=== PATIENT | male | born 1945 | race Caucasian/White ===

== ENCOUNTER → 2017-04-04 | Outpatient (CLI) | payer MEDICARE ==
--- NOTE | 2017-04-04 18:31 | PN ---
PROGRESS NOTE DATE OF SERVICE: 04/04/2017. 72-year-old gentleman has been followed in [facility] for treatment of obstructive sleep apnea-hypopnea syndrome. Patient successfully continued to use his CPAP equipment without any significant problems with the pressure or humidification or mask fitting. He continued to use equipment every night. [place] Sleepiness Scale today is 7. The patient lost weight from 198 to 171 pounds. I checked his CPAP unit. CPAP pressure is 9 cm of water. Patient using equipment 100% of nights for more than 4 hours, average 6.3 hours per night. MEDICATIONS: Breath Right, metformin, aspirin, lisinopril, vitamin C, simvastatin, insulin. . PHYSICAL EXAM: During physical exam, patient in no distress. BP 109/54, HR 64, RR 16, height 5 feet 8 inches, weight 171, BMI 26, temperature 98.3, oxygen saturation at room air 98%. HEENT: PERRLA, EOMI. Evaluation of oropharynx showed extremely low position of soft palate. NECK: Supple. No JVD. Thyroid is not palpable. LUNGS: Clear to percussion and to auscultation. Good air exchange. No wheezing or rhonchi. HEART: S1, S2 regular. No murmurs, gallops or rubs. ABDOMEN: Soft and nontender. Bowel sounds are present. No organomegaly appreciated. EXTREMITIES: No cyanosis or clubbing. REFRIGERATION MANAGER: Awake, alert and oriented x3. Cranial nerves II through VII intact. There is no fasciculation or atrophy noted. No focal deficits observed. IMPRESSION: 1. Obstructive sleep apnea-hypopnea syndrome. The patient demonstrated 100% compliance with treatment benefitting from treatment. Clinically obstructive sleep apnea-hypopnea syndrome is controlled with CPAP at 9 cm of water. 2. Hypertension. 3. Diabetes mellitus, presently patient was started on treatment with insulin. 4. Posttraumatic stress disorder. 5. History of DVT. 6. Hyperlipidemia. 7. Status post UPPP in 2001. PLAN: 1. Continue treatment with CPAP every night for the whole night. 2. Watching weight. 3. Sleep hygiene with regular time in bed for at least 8 hours. 4. No driving if feeling sleepiness. 5. Followup visit in 1 year. At that time we will consider to replace patient's CPAP unit to new unit, which will show us his apnea-hypopnea index during sleep. Thank you very much for allowing me to participate in management of your patient. Sincerely, Sam Vides MD, PhD, FAASM Diplomat of [place] [employer], Sleep Medicine Board by [place] [employer] Telesales Specialist of [facility] [place] BEENA / NEISHA: [id number] /
== END | disposition home or self-care (01) ==
LOC: SLEEP 15:59
PROVIDERS: ATTEND Internal Medicine
DX: G47.33 Obstructive sleep apnea (adult) (pediatric) (principal); I10 Essential (primary) hypertension; E11.9 Type 2 diabetes mellitus without complications; E78.5 Hyperlipidemia, unspecified; F43.12 Post-traumatic stress disorder, chronic; Z86.718 Personal history of other venous thrombosis and embolism; Z79.4 Long term (current) use of insulin

== ENCOUNTER → 2017-10-31 | Outpatient (CLI) | payer MEDICARE ==
--- NOTE | 2017-10-31 10:48 | ECHOS ---
STRESS ECHOCARDIOGRAM DATE OF SERVICE: 10/31/2017 INDICATIONS: Abnormal EKG. MEDICATIONS: Simvastatin, Jardiance, metformin. BASELINE HEART RATE: 63 BASELINE BLOOD PRESSURE: 126/38 MAXIMUM HEART RATE: 138 MAXIMUM BLOOD PRESSURE: 192/70 85% MPHR: 126 100% MPHR: 148 METS: 8 MAXIMUM STAGE REACHED: III TOTAL EXERCISE TIME: 7 minutes CLINICAL INFORMATION: Baseline EKG shows sinus rhythm with nonspecific ST-T wave changes. Patient exercised on Shakeel protocol for a total of 7 minutes achieving 8 METs, 93% of predicted maximal heart rate without chest pain. At peak exercise, there was worsening of the inferolateral ST-T wave changes noted. Baseline echo shows normal left ventricular size, wall motion and systolic function with an ejection fraction of 60%. Aortic valve shows sclerotic changes with mild restriction in leaflet mobility. Postexercise, there is normal hyperdynamic response of all segments of myocardium noted. CONCLUSIONS: 1. Limited exercise tolerance. 2. Inconclusive EKG part of the stress test due to baseline EKG abnormalities. 3. Negative stress echo. MMODL / IJN: [id number] /
== END | disposition home or self-care (01) ==
LOC: RADNMMAIN 08:18
PROVIDERS: ATTEND Internal Medicine Geriatric Medicine
DX: R94.31 Abnormal electrocardiogram [ECG] [EKG] (principal)
CPT/HCPCS: 93351

== ENCOUNTER → 2018-03-26 | Outpatient (CLI) | payer MEDICARE ==
--- NOTE | 2018-03-26 16:29 | PN ---
PROGRESS NOTE DATE OF SERVICE: 03/26/2018 73-year-old gentleman who has been followed in the Sleep Center for treatment of obstructive sleep apnea-hypopnea syndrome. The patient successfully continued to use his CPAP equipment every night without significant problems related to mask fitting, pressure and humidification. He sleeps well. [place] Sleepiness Scale today is 4. I checked the CPAP unit. CPAP pressure is 9 cm of water, usage 22/30 nights for more than 4 hours, average 4.5 hours. One time he felt burning smell from the machine. I. MEDICATIONS: Metformin, lisinopril, simvastatin, insulin, Jardiance. PHYSICAL EXAM: GENERAL Patient in no distress. VITAL SIGNS BP 133/71, HR 62, RR 16, height 68, weight 169.6, body mass index 25.6, temperature 97.8, oxygen saturation room air 96%. HEENT PERRLA, EOMI, evaluation of oropharynx showed extremely low position of soft palate. Neck 16.25 inches in circumference. NECK Supple, no JVD. Thyroid is not palpable. LUNGS Clear to percussion and to auscultation. Good air exchange. No wheezing or rhonchi. HEART S1, S2 regular. No murmurs, gallops, or rubs. ABDOMEN Soft and nontender. Bowel sounds are present. No organomegaly appreciated. EXTREMITIES No clubbing or cyanosis. MIDDLE SCHOOL BASEBALL COACH Awake, alert, and oriented X3. Cranial nerves 2 to 7 intact. There is no fasciculation or atrophy. noted. No focal deficits observed. IMPRESSION: 1. Obstructive sleep apnea-hypopnea syndrome. Patient demonstrated great compliance with treatment benefitting from treatment. 2. Hypertension. 3. Diabetes mellitus. 4. Posttraumatic stress disorder. 5. History of deep venous thrombosis. 6. Hyperlipidemia. 7. Status post uvulopalatopharyngoplasty in 2001. PLAN: 1. Prescription to replace CPAP unit is more than 5 years old. The patient felt a burning sensation from the unit. 2. Prescription for all necessary CPAP supplies including mask, tube, filters. 3. The patient will continue to use equipment every night for the whole night. 4. Sleep hygiene to them bed for at least 8 hours. 5. No driving if feeling sleepiness. Thank you very much for allowing me to participate in the management of your patient. Sincerely, Sam Vides MD, PhD, FAASM Diplomat of [place] [employer] [place] [employer] Hot Room Attendant of [facility] [place] MMDAISHA / CHAGON: [id number] /
== END ==
LOC: SLEEP 15:00
PROVIDERS: ATTEND Internal Medicine
DX: G47.33 Obstructive sleep apnea (adult) (pediatric) (principal); I10 Essential (primary) hypertension; E11.9 Type 2 diabetes mellitus without complications; F43.10 Post-traumatic stress disorder, unspecified; I82.409 Acute embolism and thrombosis of unspecified deep veins of unspecified lower extremity; E78.5 Hyperlipidemia, unspecified; Z98.890 Other specified postprocedural states; Z99.89 Dependence on other enabling machines and devices; Z79.84 Long term (current) use of oral hypoglycemic drugs; Z79.899 Other long term (current) drug therapy; Z79.4 Long term (current) use of insulin

== ENCOUNTER 2019-01-19 20:27 | Emergency (ER) | payer MEDICARE ==
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
[2019-01-19 23:29] VITALS: BP 116/58; PULSE 82; RESP 18; TEMP 98.2
--- NOTE | 2019-01-20 03:11 | ED ---
Medical Decision Making - Medical Decision Making Thumb spica splint applied to right arm. Patient neurovascularly intact before and after splint placement. Disposition Clinical Impression: Fall, Scaphoid fracture Disposition: HOME SELF-CARE Condition: Stable Instructions (If sedation given, give patient instructions): Scaphoid Fracture (ED) Is patient prescribed a controlled substance at d/c from ED?: No Referrals: Eugene Sevilla MD [Primary Care Provider] - 1-2 days Kj Castro DO [Medical Doctor] - 1-2 days Charlie Moura DO [Doctor of Osteopathic Medicine] - 1-2 days
== END 2019-01-19 23:25 | disposition home or self-care (01) ==
LOC: EC 20:27
DX: S62.001A Unspecified fracture of navicular [scaphoid] bone of right wrist, initial encounter for closed fracture (principal); S50.312A Abrasion of left elbow, initial encounter; S80.211A Abrasion, right knee, initial encounter; R07.81 Pleurodynia; E11.9 Type 2 diabetes mellitus without complications; E78.5 Hyperlipidemia, unspecified; I10 Essential (primary) hypertension; N42.9 Disorder of prostate, unspecified; G47.30 Sleep apnea, unspecified; Z99.89 Dependence on other enabling machines and devices; Z87.442 Personal history of urinary calculi; Z98.890 Other specified postprocedural states; Z79.82 Long term (current) use of aspirin; Z79.84 Long term (current) use of oral hypoglycemic drugs; Z79.899 Other long term (current) drug therapy; V13.4XXA Pedal cycle driver injured in collision with car, pick-up truck or van in traffic accident, initial encounter; Y92.410 Unspecified street and highway as the place of occurrence of the external cause; Y93.55 Activity, bike riding
CPT/HCPCS: 29125; 99283

== ENCOUNTER → 2020-11-17 | Outpatient (CLI) | payer MEDICARE ==
--- NOTE | 2020-11-17 11:04 | XR ---
EXAMINATION TYPE: XR chest 2V DATE OF EXAM: 11/17/2020 COMPARISON: Chest x-ray from 01/19/2019. No recent chest x-rays available for comparison. HISTORY: History of Covid TECHNIQUE: Frontal and lateral views of the chest are obtained. FINDINGS: There is no focal air space opacity, pleural effusion, or pneumothorax seen. The cardiac silhouette size is within normal limits. The osseous structures are intact. IMPRESSION: No acute cardiopulmonary process. Lungs are clear.
== END | disposition home or self-care (01) ==
LOC: RADXRMAIN 10:39
PROVIDERS: ATTEND Internal Medicine Geriatric Medicine
DX: Z09 Encounter for follow-up examination after completed treatment for conditions other than malignant neoplasm (principal); Z86.16 Personal history of COVID-19
CPT/HCPCS: 71046

== ENCOUNTER → 2022-12-13 | Outpatient (CLI) | payer MEDICARE ==
--- NOTE | 2022-12-13 12:11 | MR ---
EXAMINATION TYPE: MR brain wo/w con DATE OF EXAM: 12/13/2022 COMPARISON: None HISTORY: Possible TIA. Memory loss. TECHNIQUE: Multiplanar, multisequence images of the brain and brainstem is performed without and with IV contras t, utilizing 8 mL intravenous Gadavist . FINDINGS: Diffusion weighted images demonstrate no evidence of a recent infarct or other diffusion ab normality. There is mild generalized degenerative change. There are scattered small subcentimeter fo quan areas of abnormal signal throughout the white matter. No midline shift or mass effect. Midline structures demonstrate normal morphology. The craniocervica l junction appears within normal limits. Post contrast images demonstrate no abnormal enhancement. The dural venous sinuses appear patent. Mil d changes of chronic sinusitis. Orbits are symmetric. IMPRESSION: 1. Mild degenerative change with very mild nonspecific white matter changes most typical of remote mi crovascular ischemia.
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
== END ==
LOC: NEUROMAIN 07:34
PROVIDERS: ATTEND Internal Medicine Geriatric Medicine
DX: R55 Syncope and collapse (principal); R41.3 Other amnesia
CPT/HCPCS: 95816; 70553; A9585

== ENCOUNTER → 2023-05-14 | Outpatient (CLI) | payer MEDICARE ==
--- NOTE | 2023-05-15 08:44 | CA ---
Transthoracic Echo Report Name: Jourdan Mccarthy Age: 78 Gender: M : 1945 Exam Date: 05/14/2023 16:22 Exam Location: [facility] Ht (in): 68 Wt (lb): 160 Ordering Physician: Eugene Sevilla MD Attending/Referring Phys: Machinist Apprentice Wood Nneka Ibarra RDCS Procedure CPT: Indications: I35.0 Nonrheumatic aortic (valve) stenosis Cardiac Hx: Technical Quality: Good Contrast 1: Total Dose (mL): Contrast 2: Total Dose (mL): MEASUREMENTS (Male / Female) Normal Values 2D ECHO LV Diastolic Diameter PLAX 5.1 cm 4.2 - 5.9 / 3.9 - 5.3 cm LV Systolic Diameter PLAX 3.2 cm IVS Diastolic Thickness 1.2 cm 0.6 - 1.0 / 0.6 - 0.9 cm LVPW Diastolic Thickness 1.1 cm 0.6 - 1.0 / 0.6 - 0.9 cm LV Relative Wall Thickness 0.5 RV Internal Dim ED PLAX 3.8 cm LVOT Diameter 2.3 cm LA Systolic Diameter LX 4.4 cm 3.0 - 4.0 / 2.7 - 3.8 cm LV Diastolic Volume MOD 4C 114.0 cm??? LV Systolic Volume MOD 4C 60.0 cm??? LV Ejection Fraction MOD 4C 47.4 % LV Cardiac Index MOD 4C 1472.3 cm???/min???m??? LV Diastolic Length 4C 8.3 cm LV Systolic Length 4C 6.6 cm LV Diastolic Volume MOD 2C 108.0 cm??? LV Systolic Volume MOD 2C 61.5 cm??? LV Ejection Fraction MOD 2C 43.0 % LV Cardiac Index MOD 2C 1264.0 cm???/min???m??? LV Diastolic Length 2C 8.6 cm LV Systolic Length 2C 7.5 cm LA Volume 77.4 cm??? 18 - 58 / 22 - 52 cm??? LA Volume Index 41.3 cm???/m??? 16 - 28 cm???/m??? M-MODE Aortic Root Diameter MM 3.3 cm MV E Point Septal Separation 0.7 cm AV Cusp Separation MM 2.1 cm DOPPLER AV Peak Velocity 337.4 cm/s AV Peak Gradient 45.5 mmHg AV Mean Velocity 227.5 cm/s AV Mean Gradient 23.5 mmHg AV Velocity Time Integral 85.0 cm LVOT Peak Velocity 93.1 cm/s LVOT Peak Gradient 3.5 mmHg AV Area Cont Eq pk 1.1 cm??? MV Area PHT 2.3 cm??? Mitral E Point Velocity 80.4 cm/s Mitral A Point Velocity 73.4 cm/s Mitral E to A Ratio 1.1 MV Deceleration Time 326.0 ms MV E' Velocity 4.9 cm/s Mitral E to MV E' Ratio 16.3 TR Peak Velocity 254.8 cm/s TR Peak Gradient 26.0 mmHg Right Ventricular Systolic Press 30.6 mmHg FINDINGS Left Ventricle Left ventricular ejection fraction is estimated at 55-60 %. Left ventricular cavity size normal. Mildly increased left ventricular wall thickness. Normal left ventricular wall motion. Grade 2 diastolic dysfunction. Right Ventricle Mild right ventricular dilatation. Right ventricular systolic pressure within normal limits. Right Atrium Normal right atrial size. Left Atrium Mildly increased left atrial diameter. Moderately increased left atrial volume. Mildly increased left atrial area. Mitral Valve Mitral valve thickened. Mitral annular calcification. Mild mitral regurgitation. Aortic Valve Trileaflet aortic valve. Modrate aortic valve sclerosis. Moderate aortic stenosis with a peak gradient of 46 mmHg and a mean gradient of 23 mmHg. Tricuspid Valve Structurally normal tricuspid valve. Mild tricuspid regurgitation. Pulmonic Valve Structurally normal pulmonic valve. Trace pulmonic regurgitation. Pericardium No pericardial effusion. Aorta Normal size aortic root and proximal ascending aorta. CONCLUSIONS 1. Normal left ventricular size and systolic function 2. Mild mitral and tricuspid regurgitation with no evidence of pulmonary hypertension 3. Moderate aortic stenosis with a mean gradient of 23 mmHg Previewed by: Dr. Shayna Almaraz MD (Electronically Signed) Final Date: 15 May 2023 08:43
== END | disposition home or self-care (01) ==
LOC: RADECHMAIN 16:13
PROVIDERS: ATTEND Internal Medicine Geriatric Medicine
DX: I35.0 Nonrheumatic aortic (valve) stenosis (principal)
CPT/HCPCS: 93306

== ENCOUNTER → 2024-01-17 | Outpatient (CLI) | payer MEDICARE ==
--- NOTE | 2024-01-17 15:13 | CA ---
Transthoracic Echo Report Name: Jourdan Mccarthy Age: 78 Gender: M : 1945 Exam Date: 01/17/2024 09:37 Exam Location: [facility] Ht (in): 68 Wt (lb): 161 Ordering Physician: Eugene Sevilla MD Attending/Referring Phys: Eugene Sevilla MD Terrazzo Layer Helper Rosetta Das, [facility] Procedure CPT: Indications: I20.9 angina pectoris Cardiac Hx: Technical Quality: Fair Contrast 1: Total Dose (mL): Contrast 2: Total Dose (mL): MEASUREMENTS (Male / Female) Normal Values 2D ECHO LV Diastolic Diameter PLAX 4.8 cm 4.2 - 5.9 / 3.9 - 5.3 cm LV Systolic Diameter PLAX 3.6 cm IVS Diastolic Thickness 1.6 cm 0.6 - 1.0 / 0.6 - 0.9 cm LVPW Diastolic Thickness 1.6 cm 0.6 - 1.0 / 0.6 - 0.9 cm LV Relative Wall Thickness 0.7 RV Internal Dim ED PLAX 2.8 cm LVOT Diameter 2.0 cm LA Systolic Diameter LX 4.8 cm 3.0 - 4.0 / 2.7 - 3.8 cm LV Diastolic Volume MOD BP 61.5 cm??? 67 - 155 / 56 - 104 cm??? LV Systolic Volume MOD BP 21.6 cm??? 22 - 58 / 19 - 49 cm??? LV Ejection Fraction MOD BP 64.8 % >= 55 % LV Cardiac Index MOD BP 1124.9 cm???/min???m??? LV Diastolic Volume MOD 4C 55.0 cm??? LV Systolic Volume MOD 4C 14.4 cm??? LV Ejection Fraction MOD 4C 73.9 % LV Cardiac Index MOD 4C 1145.8 cm???/min???m??? LV Diastolic Length 4C 7.6 cm LV Systolic Length 4C 5.1 cm LV Diastolic Volume MOD 2C 67.5 cm??? LV Systolic Volume MOD 2C 27.1 cm??? LV Ejection Fraction MOD 2C 59.9 % LV Cardiac Index MOD 2C 1139.3 cm???/min???m??? LV Diastolic Length 2C 7.4 cm LV Systolic Length 2C 6.2 cm Aorta at Sinuses Diameter 3.5 cm M-MODE Aortic Root Diameter MM 2.5 cm LA Systolic Diameter MM 3.3 cm LA Ao Ratio MM 1.3 DOPPLER AV Peak Velocity 448.3 cm/s AV Peak Gradient 80.4 mmHg AV Mean Velocity 364.6 cm/s AV Mean Gradient 56.3 mmHg AV Velocity Time Integral 124.5 cm LVOT Peak Velocity 81.3 cm/s LVOT Peak Gradient 2.6 mmHg LVOT Velocity Time Integral 22.2 cm LVOT Stroke Volume 72.2 cm??? LVOT Stroke Volume Index 38.8 ml/m??? LVOT Cardiac Index 2036.9 cm???/min???m??? AV Area Cont Eq vti 0.6 cm??? AV Area Cont Eq pk 0.6 cm??? Mitral E Point Velocity 81.0 cm/s Mitral A Point Velocity 76.1 cm/s Mitral E to A Ratio 1.1 MV Deceleration Time 285.6 ms TR Peak Velocity 273.0 cm/s TR Peak Gradient 29.8 mmHg Right Ventricular Systolic Press 34.9 mmHg FINDINGS Left Ventricle Left ventricular ejection fraction is estimated at 60-65 %. Moderately increased septal wall thickness. Left ventricular cavity size normal. Normal left ventricular systolic function with no obvious regional wall motion abnormalities. Right Ventricle Normal right ventricular size and function. Mild pulmonary hypertension. Right Atrium Mild right atrial dilatation. Left Atrium Moderately increased left atrial diameter. Mitral Valve Structurally normal mitral valve. Szld-kh-[id number] mitral regurgitation. No mitral stenosis. Aortic Valve Trileaflet aortic valve. Severe aortic stenosis with a peak velocity of 4.48 m/s, peak gradient 80 mmHg, mean gradient 56 mmHg, and estimated aortic valve area of 0.6 cm???. Trace aortic regurgitation. Tricuspid Valve Structurally normal tricuspid valve. Mild tricuspid regurgitation. Pulmonic Valve Structurally normal pulmonic valve. Trace pulmonic regurgitation. Pericardium No pericardial or pleural effusion. Aorta Upper limits of normal at the level of the sinuses of valsalva (root), 3.5cm. CONCLUSIONS Left ventricular ejection fraction 60-65% Moderately increased left ventricular wall thickness Severe aortic stenosis with peak gradient 4.4 m/s Mild tricuspid regurgitation Previewed by: Dr. Uriel Martínez DO (Electronically Signed) Final Date: 17 January 2024 15:12
== END | disposition home or self-care (01) ==
LOC: RADNMMAIN 09:12
PROVIDERS: ATTEND Internal Medicine Geriatric Medicine
DX: I20.9 Angina pectoris, unspecified (principal); I08.2 Rheumatic disorders of both aortic and tricuspid valves
CPT/HCPCS: 93306

== ENCOUNTER → 2024-03-25 | Day surgery (SDC) | payer MEDICARE ==
[2024-03-20 09:53] VITALS: BMI 26.2
[~2024-03-25] MED LIST: ALPRAZolam 0.25 MG TAB PO PRN; ALPRAZolam 0.5 MG TAB PO PRN; NITROGLYCERIN SL TABS 0.4 MG TAB SUBLINGUAL PRN
[2024-03-25 07:37] LABS: Glucose,Whole Blood 187 mg/dL (70-110)
[2024-03-25 07:40] VITALS: TEMP 97.6
[2024-03-25] MEDS: ASPIRIN 325 MG TAB PO STA (07:44)
[2024-03-25] MEDS: SODIUM CHLORIDE 0.9% 1,000 ML in EMPTY BAG 1 BAG IV SCH (07:44)
[2024-03-25] MEDS: IV FLUID CONTINUATION 1,000 ML IV ONE (07:47)
[2024-03-25 08:06] LABS: Basophils % (A) 1 %; Eosinophils # (A) 0.1 k/uL (0-0.7); Eosinophils % (A) 2 %; HCT 39.3 % (39.0-53.0); Lymphocytes # (A) 1.6 k/uL (1.0-4.8); Lymphocytes % (A) 36 %; MCH 30.9 pg (25.0-35.0); MCHC 33.1 g/dL (31.0-37.0); MCV 93.5 fL (80.0-100.0); Mean Platelet Volume 9.4; Monocytes # (A) 0.4 k/uL (0-1.0); Monocytes % (A) 8 %; Neutrophils # (A) 2.2 k/uL (1.3-7.7); Neutrophils % (A) 51 %; Platelet Count 170 k/uL (150-450); RDW 14.4 % (11.5-15.5); WBC 4.4 k/uL (3.8-10.6)
[2024-03-25] MEDS: BENZOCAINE SPRAY 1 EACH MM ONE (08:20)
[2024-03-25] MEDS: fentaNYL (PF) 50 MCG/ML 2 ML AMP IVP ONE (08:20)
[2024-03-25] MEDS: MIDAZOLAM 2 MG/2 ML VIAL IVP ONE (08:20)
[2024-03-25 08:22] LABS: ALT 14 U/L (4-49); AST 19 U/L (17-59); African American GFR (CKD) >90 (>60 ml/min/1.73 sqM); Albumin 4.2 g/dL (3.5-5.0); Alkaline Phosphatase 74 U/L (38-126); Anion Gap 7 mmol/L; Blood Urea Nitrogen 21 mg/dL (9-20); Calcium 9.3 mg/dL (8.4-10.2); Carbon Dioxide 29 mmol/L (22-30); Chloride 102 mmol/L (98-107); Glucose 172 mg/dL (74-99); Non-African American GFR(CKD) 82 (>60 ml/min/1.73 sqM); Sodium 138 mmol/L (137-145); Total Bilirubin 0.9 mg/dL (0.2-1.3); Total Protein 6.4 g/dL (6.3-8.2); Uric Acid 4.9 mg/dL (3.5-8.5)
[2024-03-25] MEDS: SODIUM CHLORIDE 0.9% 1,000 ML IV ONE (08:37)
[2024-03-25] MEDS: LIDOCAINE 1% INJ 10MG/ML (20 ML MDV) SQ ONE (08:44)
[2024-03-25] MEDS: VERAPAMIL SYRINGE (5 MG/10 ML) INTRAARTER ONE (08:45)
[2024-03-25] MEDS: HEPARIN SODIUM 1,000 UN/ML (10ML VL) IVP ONE (08:49)
[2024-03-25] MEDS: IOPAMIDOL-370 100ML BTL INJ ONE (08:58)
[2024-03-25] MEDS: HEPARIN SODIUM,PORCINE 10,000 UNIT in SODIUM CHLORIDE 0.9% 1,000 ML IRRIGATION PRN (08:59)
[2024-03-25] MEDS: HEPARIN SODIUM,PORCINE (1 ML) 2,500 UNIT in SODIUM CHLORIDE 0.9% 250 ML IRRIGATION PRN (08:59)
--- NOTE | 2024-03-25 09:56 | P.TEE ---
Description of Procedure(s): Procedure performed: Transesophageal Echocardiogram with color flow doppler, pulsed wave doppler and continuous wave doppler, moderate conscious sedation Moderate conscious sedation: Moderate conscious sedation was supplied with direct supervision of myself using Versed and Fentanyl. Complications: none Indications: aortic stenosis PROCEDURE: After the risks, benefits and alternatives of the above mentioned procedure was explained in detail with the patient, informed consent was obtained. Patient was brought to the lab in a fasting state. Patient was given IV Versed and Fentanyl for sedation. The throat was sprayed with Hurricane to anesthetize the throat. A lubricated Omni probe was then introduced into the esophagus and stomach and multiple views were obtained. 2D echo with color flow doppler, pulsed wave doppler and continuous wave doppler was utilized. Agitated saline bubbles were injected to assess for any intra-atrial shunt. The probe was then removed. Patient tolerated the procedure well. Patient was transferred to the post procedure area in stable and satisfactory condition. FINDINGS: 1. The aortic valve is tricuspid with severe aortic stenosis with aortic valve area 0.6 cm by planimetry 2. The mitral valve appears be normal with mild regurgitation. 3. Tricuspid valve appears to be normal. 4. The interatrial septum is intact. No evidence of PFO. 5. Left atrial appendage is free of clot. 6. Left ventricular ejection fraction 55%
--- NOTE | 2024-03-25 10:00 | P.CARDCATH ---
Description of Procedure: PROCEDURES PERFORMED: Bilateral coronary angiography, ultrasound guided arterial access, iFR RCA INDICATION: Aortic stenosis CONSENT:I have discussed the risks, benefits and alternative therapies for the above-mentioned procedure and for both sedation/analgesia as well as necessary blood product administration, if indicated, as they pertain to this patient. The patient has indicated understanding and acceptance of the risks and procedures discussed. PROCEDURE: After the risks, benefits and alternatives of the above mentioned procedure explained in detail with the patient, informed consent was obtained. Patient was taken to the catheterization lab and prepped and draped in usual fashion. Ultrasound guidance was used to assess for arterial access. 1% lidocaine was used to anesthetize the right radial artery. A 6-Maltese sheath was placed in the right radial artery using modified Seldinger technique and ultrasound guidance. Left coronary angiography was performed with a 5-Maltese JL 3.5 catheter and right coronary angiography was performed with a 5-Maltese FR5 catheter in various views. the decision was made to perform functional assessment of the RCA. However was given. A 5-Maltese FR5 catheter was engaged in the RCA. A 0.014 pressure wire was advanced in the RCA ostium and normalized. It was then advanced 1 cm distal to the lesion and RFR (iFR) was performed and was normal at 0.97. The right radial sheath was removed and a TR band was placed with hemostasis achieved. The patient tolerated the procedure well. Patient was transported back to the post catheterization holding area in stable condition. Conscious Sedation: Patient was monitored under the direct supervision of myself for conscious sedation using Versed and fentanyl for a total duration of 14 minutes HEMODYNAMICS: Aorta: 155/72 SELECTIVE CORONARY ARTERIOGRAPHY: LEFT MAIN: The left main is a large caliber vessel which trifurcates into the LAD, ramus and circumflex. There is no significant stenosis. LEFT ANTERIOR DESCENDING CORONARY ARTERY: LAD is a large caliber vessel which wraps around to the apex. There is 20-30% proximal LAD in 20-30% mid LAD stenosis and otherwise mild luminal irregularities. RAMUS INTERMEDIUS: the ramus is a moderate caliber vessel with mild luminal irregularities. LEFT CIRCUMFLEX CORONARY ARTERY: Left circumflex is a moderate caliber vessel with mild luminal irregularities RIGHT CORONARY ARTERY: The right coronary artery is a large caliber vessel which gives off a PDA and PLV branch and is the dominant vessel. There is proximal RCA calcified 50-60% plaque and otherwise mild luminal irregularities. FINAL IMPRESSION: 1. CAD as described above including 20-30% LAD, 50-60% proximal RCA stenosis 2. Normal iFR of RCA PLAN: 1. Aggressive risk factor modification per most recent ACC/AHA guidelines. 2. Evaluate for AVR
[2024-03-25 15:26] LABS: Chol/HDL Ratio 4.01 Ratio; LDL Cholesterol,Calculated 147.1 mg/dL (0.0-131.0)
[2024-03-25 15:36] VITALS: RESP 14
[2024-03-25 15:39] VITALS: BP 128/55; PULSE 50
== END ==
LOC: CATHCVL 06:38
PROVIDERS: ATTEND Internal Medicine
DX: I08.3 Combined rheumatic disorders of mitral, aortic and tricuspid valves (principal); I25.10 Atherosclerotic heart disease of native coronary artery without angina pectoris; E11.9 Type 2 diabetes mellitus without complications; I10 Essential (primary) hypertension; E78.5 Hyperlipidemia, unspecified; Z79.899 Other long term (current) drug therapy
CPT/HCPCS: 80053; 80061; 83036; 84443; 84550; 85025; 93312; 93320; 93325; 93454; 93799

== ENCOUNTER → 2024-04-09 | Outpatient (CLI) | payer MEDICARE ==
[2024-04-09 09:55] LABS: HGB 13.3 gm/dL (13.0-17.5); MCH 30.7 pg (25.0-35.0); MCHC 32.4 g/dL (31.0-37.0); MCV 94.8 fL (80.0-100.0); RBC 4.33 m/uL (4.30-5.90); RDW 14.6 % (11.5-15.5); WBC 5.6 k/uL (3.8-10.6)
[2024-04-09 09:56] LABS: Basophils % (A) 0 %; Eosinophils # (A) 0.1 k/uL (0-0.7); Eosinophils % (A) 2 %; Lymphocytes # (A) 1.3 k/uL (1.0-4.8); Lymphocytes % (A) 24 %; Mean Platelet Volume 9.3; Monocytes # (A) 0.4 k/uL (0-1.0); Monocytes % (A) 7 %; Neutrophils # (A) 3.7 k/uL (1.3-7.7); Neutrophils % (A) 66 %; Platelet Count 171 k/uL (150-450)
[2024-04-09 10:04] LABS: Partial Thromboplastin Time 23.2 sec (22.0-30.0); Prothrombin Time 11.1 sec (10.0-12.5)
[2024-04-09 10:16] LABS: ALT 17 U/L (4-49); AST 24 U/L (17-59); African American GFR (CKD) >90 (>60 ml/min/1.73 sqM); Albumin 4.5 g/dL (3.5-5.0); Albumin/Globulin Ratio 1.8; Alkaline Phosphatase 62 U/L (38-126); Anion Gap 7 mmol/L; Bilirubin,Unconjugated 0.8 mg/dL (0.0-1.1); Blood Urea Nitrogen 25 mg/dL (9-20); Calcium 9.6 mg/dL (8.4-10.2); Carbon Dioxide 28 mmol/L (22-30); Chloride 103 mmol/L (98-107); Globulin 2.5 g/dL; Glucose 170 mg/dL (74-99); Magnesium 1.9 mg/dL (1.6-2.3); Non-African American GFR(CKD) 88 (>60 ml/min/1.73 sqM); Potassium 4.3 mmol/L (3.5-5.1); Sodium 138 mmol/L (137-145)
[2024-04-09 10:23] LABS: NT-Pro-B-Type Natriuretic Pept 997 pg/mL
[2024-04-09 11:00] LABS: Appearance,Urine Clear (Clear); Bilirubin,Urine Negative (Negative); Blood,Urine Negative (Negative); Color,Urine Light Yellow; Glucose,Urine (UA) Negative (Negative); Ketones,Urine Negative (Negative); Leukocyte Esterase,Urine Negative (Negative); Nitrite,Urine Negative (Negative); Protein,Urine Negative (Negative); Specific Gravity,Urine 1.021 (1.001-1.035); Urobilinogen,Urine <2.0 mg/dL (<2.0)
--- NOTE | 2024-04-09 11:55 | CT ---
EXAMINATION TYPE: CT TAVR Planning DATE OF EXAM: 04/09/2024 HISTORY: TAVR planning CT DLP: 1951.30 mGycm Automated Exposure Control for Dose Reduction was Utilized. CONTRAST: CT scan of the chest, abdomen and pelvis is performed with IV Contrast, patient injected with 125 mL of Isovue 370. COMPARISON: None TECHNIQUE: Helical imaging obtained through the chest, abdomen and pelvis during arterial phase anila ambrose administration of radiographic contrast intravenously. FINDINGS: See report from [facility] regarding preprocedural planning CHEST: There are no nodules greater than 5 6 mm there are diffuse scattered micronodules. There is no airspa ce consolidation or interstitial density. There is no pleural effusion, pleural thickening or pneumot horax. Heart is not enlarged. The aortic root and ascending thoracic aorta are not dilated. There is moderat e to marked calcification in the aortic root likely involving the aortic valve and origins of the cor onary vessels. There is no mediastinal, hilar or axillary adenopathy. The osseous structures are intact. CT abdomen and pelvis: The gallbladder is normal. There is no focal mass or organomegaly involving the solid visceral organs there is no solid renal ma ss or hydronephrosis. There is moderate calcification abdominal aorta but no aneurysm. There is no retroperitoneal adenopat hy. The bowel loops are normal in caliber and there is no dilatation or obstruction. There is marked dive rticulosis of the sigmoid colon without CT evidence of diverticulitis. There is no free intraperitoneal air or fluid. There is no pelvic mass or adenopathy. The osseous structures are intact. CT NECK: There is no thyroid mass or nodule. The larynx is intact. The tongue base is normal without mass. There is no pharyngeal or parapharyngeal soft tissue mass. There is no neck adenopathy. There is moderate calcification of the carotid bifurcations resulting in mild stenosis. IMPRESSION: 1. No thoracic aortic aneurysm. Calcification of the aortic root as described above. 2. No acute cardiopulmonary disease. 3. No acute changes within the abdomen or pelvis. 4. No acute changes within the soft tissues of the neck. [facility], , 04/09/2024 11:52 AM
--- NOTE | 2024-04-09 12:33 | US ---
EXAMINATION TYPE: US carotid duplex BILAT DATE OF EXAM: 04/09/2024 COMPARISON: 08/28/2022 CLINICAL INDICATION: Male, 79 years old with history of R55; Pre-OP pt TECHNIQUE: Grayscale, color Doppler and spectral Doppler evaluation of the bilateral carotid systems and vertebral arteries.Indirect Doppler criteria was utilized. FINDINGS: EXAM MEASUREMENTS: RIGHT: Peak Systolic Velocity (PSV) cm/sec ----- Right CCA: 61.6 ----- Right ICA: 131.8 ----- Right ECA: 94.1 ICA/CCA ratio: 2.1 RIGHT: End Diastole cm/sec ----- Right CCA: 11.0 ----- Right ICA: 33.3 ----- Right ECA: 0.0 LEFT: Peak Systolic Velocity (PSV) cm/sec ----- Left CCA: 84.4 ----- Left ICA: 122.1 ----- Left ECA: 82.3 ICA/CCA ratio: 1.4 LEFT: End Diastole cm/sec ----- Left CCA: 11.0 ----- Left ICA: 22.0 ----- Left ECA: 0.0 VERTEBRALS (direction of flow): Right Vertebral: Antegrade Left Vertebral: Antegrade Rhythm: Arrhythmia ENGINEER TECHNICAL STAFF NOTES: Heterogeneous plaque bilaterally with elevated velocities and ratios, more on righ t side. IMPRESSION: 1. Atherosclerotic changes with findings suggestive of a 50-69% stenosis proximal right ICA. 2. Cardiac dysrhythmia. Criteria for Assigning % of Stenosis / Diameter reduction (Estimation based on the indirect measurements of the internal carotid artery velocities (ICA PSV). 1. Normal (no stenosis)=ICA PSV < 125 cm/s: ratio < 2.0: ICA EDV<40 cm/s. 2. Less than 50% stenosis=ICA PSV < 125 cm/s: ratio < 2.0: ICA EDV<40 cm/s. 3. 50 to 69% stenosis=ICA PSV of 125 to 230 cm/s: ration 2.0 ? 4.0: ICA EDV 40-100 cm/s. 4. Greater than 70% stenosis to near occlusion= ICA PSV > 230 cm/s: ratio > 4.0: ICA EDV > 100 cm/s. 5. Near occlusion= ICA PSV velocities may be low or undetectable: variable ratio and ICA EDV. 6. Total occlusion=unable to detect flow. [facility], , 04/09/2024 12:30 PM
[2024-04-09 16:00] LABS: Chol/HDL Ratio 2.68 Ratio; LDL Cholesterol,Calculated 76.8 mg/dL (0.0-131.0)
== END | disposition home or self-care (01) ==
LOC: LABWHC1 09:02
PROVIDERS: ATTEND Thoracic Surgery (Cardiothoracic Vascular Surgery)
DX: Z01.818 Encounter for other preprocedural examination (principal); I35.0 Nonrheumatic aortic (valve) stenosis; R55 Syncope and collapse; E87.8 Other disorders of electrolyte and fluid balance, not elsewhere classified; R58 Hemorrhage, not elsewhere classified; E07.9 Disorder of thyroid, unspecified; R35.0 Frequency of micturition; E11.9 Type 2 diabetes mellitus without complications; N28.9 Disorder of kidney and ureter, unspecified; E78.5 Hyperlipidemia, unspecified; H59.0 Disorders of the eye following cataract surgery; Z79.01 Long term (current) use of anticoagulants; Z79.899 Other long term (current) drug therapy
CPT/HCPCS: 94150; 83880; 80061; 80053; 84443; 82248; 83735; 85025; 85610; 85730; 81003; 83036; 93880; 71275; 36415 ×2; 74174; 93005; Q9967

== ENCOUNTER → 2024-04-13 | Outpatient (CLI) | payer MEDICARE ==
[2024-04-13 17:32] LABS: Partial Thromboplastin Time 24.9 sec (22.0-30.0); Prothrombin Time 11.2 sec (10.0-12.5)
[2024-04-14 02:28] LABS: HCT 40.8 % (39.6-50.0); HGB 13.3 g/dL (13.0-17.0); MCH 31.2 pg (27.0-32.0); MCHC 32.6 g/dL (32.0-37.0); MCV 95.8 FL (80.0-97.0); Mean Platelet Volume 12.9 FL (9.5-12.2); NRBC Per 100 WBC 0 X 10*3/uL (0.00-0.01); Platelet Count 154 X 10*3/uL (140-440); RBC 4.26 X 10*6/uL (4.40-5.60); RDW 14.9 % (11.5-14.5)
[2024-04-14 03:11] LABS: Magnesium 1.7 mg/dL (1.5-2.4)
[2024-04-14 03:29] LABS: Blood Urea Nitrogen 22.9 mg/dL (9.0-27.0); Carbon Dioxide 25.2 mmol/L (21.6-31.8); Chloride 103 mmol/L (96-109); Glucose 157 mg/dL (70-110); Potassium 4.7 mmol/L (3.5-5.5); Sodium 140 mmol/L (135-145)
== END | disposition home or self-care (01) ==
LOC: LABPAT 16:20
PROVIDERS: ATTEND Surgery
DX: Z01.818 Encounter for other preprocedural examination
CPT/HCPCS: 80051; 82565; 82947; 83735; 84520; 85027; 85610; 85730; 86850; 86900; 86901

== ENCOUNTER 2024-04-15 05:32 | Inpatient (IN) | payer MEDICARE ==
[2024-04-14 13:20] VITALS: BMI 26.6
[2024-04-15] MEDS ORDERED: ELECTROLYTE-A SOLUTION 1,000 ML with POTASSIUM CHLORIDE 100 MEQ, MAGNESIUM SULFATE 16 M... IV PRN (06:00)
[2024-04-15] MEDS ORDERED: TRANEXAMIC ACID 2,000 MG in SODIUM CHLORIDE 0.9% 80 ML IV PRN (06:00)
[2024-04-15] MEDS ORDERED: PROTAMINE SULFATE 250 MG in EMPTY BAG 1 BAG IV PRN (06:00)
[2024-04-15] MEDS ORDERED: CLEVIDIPINE BUTYRATE 25 MG in EMPTY BAG 1 BAG IV PRN (06:00)
[2024-04-15] MEDS ORDERED: NITROGLYCERIN-D5W PMX 25 MG/250 ML BTL IV PRN (06:00)
[2024-04-15] MEDS ORDERED: SODIUM CHLORIDE 0.9% 500 ML 500 ML INTRAARTER PRN (06:00)
[2024-04-15] MEDS ORDERED: METOPROLOL TARTRATE 25 MG TAB PO ONE (06:00)
[2024-04-15] MEDS ORDERED: INSULIN REGULAR 100 UNIT in SODIUM CHLORIDE 0.9% 100 ML IV PRN (06:00)
[2024-04-15 06:22] LABS: Glucose,Whole Blood 135 mg/dL (70-110)
[2024-04-15] MEDS: IV FLUID CONTINUATION 1,000 ML IV ONE ×2 (06:22→09:28)
[2024-04-15] MEDS: CLOPIDOGREL 75 MG TAB PO ONE (06:23)
[2024-04-15] MEDS: ATORVASTATIN 10 MG TAB PO ONE (06:23)
[2024-04-15] MEDS: METOPROLOL TARTRATE 12.5 MG TAB PO ONE ×2 (06:26→20:25)
[2024-04-15] MEDS ORDERED: ROCURONIUM 10 MG/ML (5 ML VIAL) IV ONE (07:47)
[2024-04-15] MEDS ORDERED: MIDAZOLAM 2 MG/2 ML VIAL ONE (07:47)
[2024-04-15] MEDS ORDERED: HEPARIN SODIUM,PORCINE 10,000 UNIT/ML 1 ML VIAL ONE (07:47)
[2024-04-15] MEDS ORDERED: GLYCOPYRROLATE 0.2 MG/ML 2 ML VIAL ONE (07:47)
[2024-04-15] MEDS: IOPAMIDOL-370 200ML BTL INJ ONE (09:04)
--- NOTE | 2024-04-15 09:06 | P.ANPRN ---
Procedure Note - Anesthesia - ERLINDA Intraop Pre Bypass ERLINDA Intraop - Anesthesia Indication: TAVR Date of Procedure: 04/15/24 Pre-operative Diagnosis: Aortic Stenosis Post-operative Diagnosis: same, s/p tavr Surgeon: Aakash Paulson Left Ventricle: no rwma Ejection Fraction: Normal Regional Wall Motion Abnormalities: None Left Ventricle Hypertrophy: No R. Ventricle Function: Normal Aortic Valve: calcified. peak 62, mean 43. Calculated DANIELE 0.4cm2. Thickened leaflets Anatomy: Trileaflet Aortic Stenosis: Severe Aortic Regurgitation: None Mitral Stenosis: None Mitral Regurgitation: Mild Tricuspid Stenosis: None Tricuspid Regurgitation: Trace Pulmonic Stenosis: None Pulmonic Regurgitation: None R. Atrial Dilation: No R. Atrial PFO: No L. Atrial Dilation: No Aortic Dissection: No Aortic Calcification: None Plural Effusion: None
--- NOTE | 2024-04-15 09:08 | P.ANPRN ---
Procedure Note - Anesthesia - ERLINDA Intraop Post Bypass ERLINDA Intraop Post Bypass Procedure Performed: TAVR Left Ventricle: wnl Ejection Fraction: Normal Regional Wall Motion Abnormalities: None R. Ventricle Function: Normal Aortic Valve: new prosthetic valve in place. Residual mean 3.5. Initially perivalvular leak noted significant at the 2 o'clock position. After balloon dilation, no longer present. Mitral Valve: Unchanged Tricuspid: Unchanged Pulmonic: Unchanged Aortic Dissection: No
--- NOTE | 2024-04-15 09:11 | P.OP ---
Description of Procedure: Transcatheter Aoritc Valve Replacement Operative report PROCEDURE PERFORMED: 1. Percutaneous Aortic Valve Implantation using a 34 mm Evolut-FX +. 2. Transesophageal echocardiography (performed by anesthesia) 3. Ultrasound guided access and repair of right femoral artery access site by Perclose closure device. 4. Placement of temporary pacemaker wire. 5. Aortic root angiography 6. Post TAVR ballooon aortic valvuloplasty with a 26mm True balloon INDICATIONS: 1. 79 year-old with a history of severe symptomatic aortic valve stenosis. PERFORMING PHYSICIANS: 1. Uriel Martínez, Interventional Cardiology 2. Aakash Paulson MD, Cardiothoracic Surgeon. SEDATION: General anesthesia provided by anesthesia, see separate note APPROACH: Right femoral artery via percutaneous approach PROCEDURE DESCRIPTION: The patient was discussed at valve clinic with multidisciplinary approach with cardiothoracic surgeon as well as software engineering specialist and thought better treated with TAVR. Risks, benefits, and alternatives of the procedure had been explained to the patient who understood the risks and agreed to proceed. After consents were obtained, patient was brought to the transcatheter aortic valve implantation room in the cardiac optical laboratory manager and general anesthesia was provided by the anesthesiologist (see separate report). Once full body sterile prep was performed, left femoral venous access was obtained and a temporary pacemaker was place in the RV. Pacing threshholds were checked and deemed appropriate. Next the left femoral artery was accessed using a modified Seldinger technique, ultrasound guidance and micropuncture technique. A 6 Maori destination sheath was placed in the left femoral artery. Next, a 6-Maori pigtail catheter was advanced into the aorta and positioned in the aortic root, aortic root angiography was performed to determine optimal deployment angle. The right femoral artery was accessed using modified Seldinger technique, micropuncture technique and under direct ultrasound guidance. Femoral angiogram was done showing access in the common femoral artery and a 6Fr sheath was placed. Next preclose technique was performed using 2 Perclose. Next a 0.035 Safari wire was placed in the Aorta via a pigtail catheter. Over that the arteriotomy was serially dilated and a 18 Fr [place] sheath was placed. Next a 6F- AL1 catheter was advanced over a wire to the aortic root. A straight wire was advanced through the catheter and used to cross the severely stenotic valve. The AL1 was then exchanged for a 6Fr pigtail catheter and pressure measurements were obtained. The 0.035 Safari wire was then positioned in the apex. Next a 34 mm Evolut-FX + was advanced. The valve was then positioned across the aortic valve and confirmed with aortic root angiography. The valve was then deployed in proper position using slow deployment and with rapid pacing in conjuncture with aortic root angiography and ERLINDA. The delivery system was withdrawn back into the arch and an aortic root injection in conjunction with ERLINDA demonstrated some leak. Therefore decision was made to perform post-balloon aortic valve plasty. Aortic valvuloplasty was performed with a 26 mm True balloon. Repeat imaging showed excellent result with trace to mild leak. There was no evidence of any other significant abnormalities. The preclose Perclose was then deployed in the right femoral artery and hemostasis was achieved. The pigtail was then advanced to the level of the iliac bifurcation via the left femoral access. Femoral ang iogram was performed that showed no contrast leak. The left femoral angiogram demonstrated an arteriotomy in the common femoral artery and this was repaired using a 6F angioseal device with complete hemostasis. The temporary venous pacemaker was pulled and manual pressure was held. The patient was then transported to the post op area in hemodynamically stable condition, requiring no pressor support. COMPLICATIONS: None CONCLUSION: 1. Implantaion of 34 mm Evolut-FX + transcatheter aortic valve via right femoral approach under ERLINDA and fluoro guidance with trace to mild rickie-valvular aortic regurgitation. 2. Placement of temporary pacemaker wire 3. Aortic Root Aortogram. 4. S/p post TAVR ballooon aortic valvuloplasty with a 26mm True balloon RECOMMENDATIONS: The patient will be monitored for hemodynamic and electrical stability.
[2024-04-15] MEDS ORDERED: Magnesium Replacement Protocol 1 EACH MISC MISCELLANE PRN (09:25)
[2024-04-15] MEDS ORDERED: Potassium Replacement Protocol 1 EACH MISC MISCELLANE PRN (09:25)
[2024-04-15] MEDS ORDERED: ONDANSETRON 4 MG/2 ML VIAL IVP PRN (09:25)
[2024-04-15] MEDS ORDERED: IPRATROPIUM-ALBUTEROL 3 ML NEB INHALATION PRN (09:25)
[2024-04-15] MEDS ORDERED: ACETAMINOPHEN TAB 325 MG TAB PO PRN (09:25)
[2024-04-15] MEDS ORDERED: DEXTROSE 50% SYRINGE 50 ML IVP PRN ×2 (09:25)
[2024-04-15 09:48] LABS: African American GFR (CKD) >90 (>60 ml/min/1.73 sqM); Anion Gap 6 mmol/L; Blood Urea Nitrogen 17 mg/dL (9-20); Calcium 9.4 mg/dL (8.4-10.2); Carbon Dioxide 29 mmol/L (22-30); Chloride 104 mmol/L (98-107); Glucose 146 mg/dL (74-99); Non-African American GFR(CKD) 85 (>60 ml/min/1.73 sqM); Potassium 4.2 mmol/L (3.5-5.1); Sodium 139 mmol/L (137-145)
[2024-04-15] MEDS: hydrALAZINE HCL 20 MG/ML 1 ML VIAL IVP STA (09:48)
[2024-04-15] MEDS ORDERED: BENZOCAINE/MENTHOL LOZENG 1 EACH LOZENGE MUCOUS MEM PRN (09:57)
[2024-04-15] MEDS ORDERED: hydrALAZINE HCL 20 MG/ML 1 ML VIAL IVP PRN (09:57)
[2024-04-15 10:25] LABS: Basophils % (A) 0 %; Eosinophils # (A) 0.1 k/uL (0-0.7); Eosinophils % (A) 1 %; HGB 11.4 gm/dL (13.0-17.5); Lymphocytes % (A) 21 %; MCH 30.8 pg (25.0-35.0); MCHC 32.5 g/dL (31.0-37.0); MCV 94.8 fL (80.0-100.0); Mean Platelet Volume 9.5; Monocytes # (A) 0.3 k/uL (0-1.0); Monocytes % (A) 7 %; Neutrophils # (A) 3.4 k/uL (1.3-7.7); Neutrophils % (A) 68 %; Platelet Count 145 k/uL (150-450); RBC 3.69 m/uL (4.30-5.90); RDW 14.5 % (11.5-15.5); WBC 4.9 k/uL (3.8-10.6)
[2024-04-15 11:07] LABS: Glucose,Whole Blood 189 mg/dL (70-110)
--- NOTE | 2024-04-15 11:33 | P.OP ---
Date of Procedure: 04/15/24 Preoperative Diagnosis: Symptomatic calcific aortic stenosis Postoperative Diagnosis: Same Procedure(s) Performed: Percutaneous transfemoral transcatheter aortic valve replacement with 34 mm Medtronic evolute flex transcatheter valve prosthesis Implants: 34 mm Medtronic evolute flex transcatheter valve prosthesis Anesthesia: GETA Surgeon: Aakash Paulson (Cardiovascular surgeon) Direct Marketing Manager #1: Uriel Martínez (extrusion bender) Direct Marketing Manager #2: Allen Mendez (Organ Tuner Electronic) Estimated Blood Loss (ml): 25 IV fluids (ml): 800 Pathology: none sent Condition: stable Disposition: PACU Indications for Procedure: 79-year-old male with symptomatic worsening severe calcific tricuspid aortic valvular stenosis. He was evaluated in the valve clinic and felt to be appropri ate for transcatheter aortic valve replacement. He was scheduled electively. Operative Findings: Significant gradient across the aortic valve. Final ERLINDA demonstrated preserved left ventricular function with extremely mild paravalvular leak. Description of Procedure: Patient was brought to the Product Builder and placed supine on the table. General an esthesia was induced. ERLINDA probe was placed. Anterior torso and bilateral groins were sterilely prepped and draped. Bilateral femoral arterial access was obtained under ultrasound guidance. On the right a 7 American sheath was placed. On the left a long 6 American sheath was advanced into the descending thoracic aorta. Through this a pigtail was advanced into the noncoronary sinus of Valsalva and was connected to monitoring. Left femoral venous access was obtained under ultrasound guidance and a 8 American sheath advanced into the iliac vein. Through this a temporary pacer was advanced into the right ventricle and tested. Right femoral 7 American sheath was exchanged for 2 Perclose devices and then an 8 American sheath was placed. This was exchanged for a 14 American sheath over a stiff wire. The patient was systemically heparinized. Through the right femoral sheath the valve was crossed and pigtail catheter placed in the apex of the ventricle. Transvalvular gradients were measured. Safari wire was now placed in the apex of the ventricle. A 34 mm Medtronic evolute valve and been loaded on the back table was brought up and checked under fluoroscopy. 14 American sheath was exchanged for the valve delivery system and it was advanced under fluoroscopy through the vascular tree around the aortic arch and across the aortic valve. It was deployed under rapid ventricular pacing with deployment levels of 2 on the right and 3 on the left. There was moderate aortic insufficiency noted by ERLINDA and root injection. Valve delivery system was removed stiff wire was maintained. 14 American sheath was replaced. The valve was recrossed with a pigtail catheter and the stiff wire repositioned in the apex of the ventricle. Post dilatation of the aortic valve prosthesis was performed with a 25 true balloon. Under this was performed under rapid ventricular pacing and proceeded without event. The balloon and wire were pulled back and repeat echo and root injection demonstrated only very mild aortic insufficiency. Heparin was now reversed with protamine. Balloon catheter was removed. 14 American sheath was removed and the 2 Perclose devices were deployed. Completion angiography demonstrated no evidence of leak with good flow no significant stenosis. Temporary pacer and arterial and venous line were removed from the left. The left femoral artery was sealed with a Angio-Seal. Patient was awakened extubated and transferred to recovery in stable condition.
[2024-04-15 13:20] LABS: African American GFR (CKD) >90 (>60 ml/min/1.73 sqM); Anion Gap 4 mmol/L; Blood Urea Nitrogen 17 mg/dL (9-20); Calcium 8.3 mg/dL (8.4-10.2); Carbon Dioxide 24 mmol/L (22-30); Chloride 108 mmol/L (98-107); Glucose 196 mg/dL (74-99); Non-African American GFR(CKD) >90 (>60 ml/min/1.73 sqM); Potassium 4.3 mmol/L (3.5-5.1); Sodium 136 mmol/L (137-145)
--- NOTE | 2024-04-15 15:04 | XR ---
EXAMINATION TYPE: XR chest 1V portable DATE OF EXAM: 04/15/2024 Comparison: 11/17/2020 Clinical History: 79-year-old male Post Operative Cardiac Surgery Findings: Interval placement of endovascular aortic valve replacement. Heart borderline enlarged. Diffuse inter stitial density has increased. No aleta consolidation or pleural effusion. Impression: 1. Interval placement of endovascular aortic valve replacement. 2. Interstitial density is increased. This can be seen with bronchitis, asthma, or mild pulmonary vas cular congestion. [facility], , 04/15/2024 3:02 PM
[2024-04-15] MEDS ORDERED: ceFAZolin 3 GM in SODIUM CHLORIDE 0.9% 100 ML IVPB SCH (16:00)
[2024-04-15] MEDS: IPRATROPIUM-ALBUTEROL 3 ML NEB INHALATION SCH (16:03)
[2024-04-15] MEDS: LACTATED RINGERS 1,000 ML IV SCH ×2 (16:09→20:25)
[2024-04-15] MEDS: lisinopriL 5 MG TAB PO SCH (16:10)
[2024-04-15] MEDS: REPAGLINIDE 1 MG TAB PO SCH (16:10)
[2024-04-15] MEDS: PIOGLITAZONE 45 MG TAB PO SCH (16:10)
[2024-04-15 16:50] LABS: Glucose,Whole Blood 253 mg/dL (70-110)
[2024-04-15] MEDS: INSULIN ASPART (NovoLOG) 100 UNIT/ML VIAL SQ SCH (16:55)
[2024-04-15] MEDS: ASPIRIN 325 MG TAB PO ONE (20:23)
[2024-04-15 20:46] LABS: Glucose,Whole Blood 106 mg/dL (70-110)
[2024-04-15] MEDS: SENNOSIDES-DOCUSATE SODIUM 1 EACH TAB PO SCH (20:48)
[2024-04-15] MEDS: METOPROLOL TARTRATE 12.5 MG TAB PO STA (21:57)
[2024-04-15] MEDS: HEPARIN SODIUM,PORCINE 5,000 UNIT/ML 1 ML VIAL SQ SCH (23:11)
[2024-04-16 06:07] LABS: Basophils % (A) 0 %; Eosinophils % (A) 0 %; HCT 37.5 % (39.0-53.0); HGB 12.1 gm/dL (13.0-17.5); Lymphocytes % (A) 12 %; MCH 30.5 pg (25.0-35.0); MCHC 32.1 g/dL (31.0-37.0); Mean Platelet Volume 9.3; Monocytes # (A) 0.7 k/uL (0-1.0); Monocytes % (A) 9 %; Neutrophils # (A) 6.4 k/uL (1.3-7.7); Neutrophils % (A) 77 %; Platelet Count 145 k/uL (150-450); RBC 3.95 m/uL (4.30-5.90); RDW 14.4 % (11.5-15.5); WBC 8.3 k/uL (3.8-10.6)
[2024-04-16 06:25] LABS: Glucose,Whole Blood 160 mg/dL (70-110)
[2024-04-16 06:26] LABS: ALT 12 U/L (4-49); AST 35 U/L (17-59); African American GFR (CKD) >90 (>60 ml/min/1.73 sqM); Albumin 3.5 g/dL (3.5-5.0); Alkaline Phosphatase 66 U/L (38-126); Anion Gap 9 mmol/L; Blood Urea Nitrogen 15 mg/dL (9-20); Calcium 9.3 mg/dL (8.4-10.2); Carbon Dioxide 23 mmol/L (22-30); Chloride 106 mmol/L (98-107); Glucose 169 mg/dL (74-99); Magnesium 1.8 mg/dL (1.6-2.3); Non-African American GFR(CKD) 87 (>60 ml/min/1.73 sqM); Potassium 4.1 mmol/L (3.5-5.1); Sodium 138 mmol/L (137-145); Total Bilirubin 1.2 mg/dL (0.2-1.3); Total Protein 5.8 g/dL (6.3-8.2)
[2024-04-16] MEDS: glipiZIDE 5 MG TAB PO SCH (06:33)
[2024-04-16] MEDS: PANTOPRAZOLE 40 MG TABLET PO SCH (06:33)
[2024-04-16 07:20] LABS: Ionized Calcium 4.8 mg/dL (4.5-5.3)
[2024-04-16 07:45] VITALS: TEMP 98.1
--- NOTE | 2024-04-16 08:05 | P.CONS ---
History of Present Illness - Reason for Consult Consult date: 04/15/24 Medical management Requesting physician: Uriel Martínez - Chief Complaint Aortic valve stenosis post TAVR - History of Present Illness HISTORY OF PRESENT ILLNESS: 79-year-old office patient with active medical history of type 2 diabetes, hypertension, hyperlipidemia, BPH, chronic neuropathy, mild peripheral vascular disease, who was diagnosed with severe aortic stenosis has become slightly symptomatic lately echocardiogram was performed based on louder murmur in the last few months and ended up finding severe aortic stenosis. Patient was referred to see cardiology and ended up going for transesophageal echocardiogram and heart catheter with March 25, 2024 result including 20-30 percentile LAD stenosis with 50-60 percentile proximal RCA stenosis. Echocardiogram initially and then transesophageal echocardiogram confirmed severe aortic stenosis. Patient was scheduled for elective surgery after his testing ended up going on a trip to [place] including excursion and bruised which patient enjoyed able to ambulate walk and keep up physically without any persistent pain of chest pain angina but slightly better tiredness and fatigue. The patient was scheduled for elective surgery for transcutaneous aortic valve repair via catheter which was done today in conjunction between cardiology and cardiothoracic Dr. Martínez and Dr. Paulson. Post procedure patient is resting comfortably was transferred to cardiac floor on monitor and has been hemodynamically stable with no major complaint. REVIEW OF SYSTEMS: CONSTITUTIONAL: Well-developed no acute respiratory distress. EYES: No icterus sclerae, no conjunctivitis. EARS, NOSE, MOUTH, THROAT, and FACE: No sore throat, lymphadenopathy, carotid bruits or deformity. RESPIRATORY: Mild shortness of breath no cough or wheezes. CARDIOVASCULAR: Positive PND orthopnea palpitation sometimes. GASTROINTESTINAL: No Abd pain, Nausea or vomiting, no Diarrhea or constipation, No GI Bleed, no distention or masses. GENITOURINARY: Mild BPH with mild polyuria and nocturia. INTEGUMENT/BREAST: Negative for any muscular injury with mild osteoarthritis.. HEMATOLOGIC/LYMPHATIC: Negative for bleed or purpura. MUSCULOSKELTAL: Negative for Myalgia or arthralgia. NEURLOGICAL: No LOC, Sz or syncope, blurred vision dizziness or abnormality. Slight memory loss.. BEHAVIORAL/PSYCH: Negative. ENDOCRINE: Negative. PHYSICAL EXAMINATION: General Appearance: Alert, cooperative, no distress, appears stated age. Neck HEENT: Supple, no lymphadenopathy, no thyroid enlargement, no carotid bruits. Lungs: Clear to auscultation without crackles or wheezes no rhonchi, no deformity. Chest Wall: Chest wall normal expansion with deep inspiration no tenderness and no deformity was found on exam, no costochondral pain or discomfort. Heart: Regular rate and rhythm, S1, S2 normal, no murmur, rub or gallop. Back: Symmetric, no curvature, ROM normal, no CVA tenderness. Abdomen: Soft, non-tender, bowel sounds active all four quadrants, no masses, no organomegaly. Extremities: Extremities normal, atraumatic, no cyanosis or edema. Pulses: 2+ and symmetric. Skin: Skin color, texture, tugor normal, no rashes or lesions. Neurologic: Alert oriented x3 cranial nerves II through XII intact, no motor deficit, no abnormal balance or gait. ASSESSMENT AND PLAN: _Severe aortic stenosis post aortic valve replacement via catheter, surgery went successful with no major complication, resting in bed hemodynamically stable still been watched by cardiac catheterization technician, medication reconciliation and to watch patient hemodynamic status carefully. _Mild atherosclerotic heart disease and coronary artery disease, with 20-30 percentile stenosis of the LAD and 50-60 of the proximal RCA which patient did not require any intervention has been on medical management at this point. _Type 2 diabetes: Has been on metformin, glimepiride, pioglitazone and Prandin. Accu-Chek sliding scales coverage to be done resume home meds watch for any hypoglycemia. _Hypertension: Continue lisinopril 5 mg a day might benefit eventually from a smaller dose of beta-lilliana. _Hyperlipidemia: Remain on simvastatin 40 mg daily with no complication or side effect. _Mild neuropathy: Up till now patient is not any medication this medical management. _BPH: Watch for any urinary retention. _GI prophylaxis: Patient to be on pantoprazole 40 mg a day. _DVT prophylaxis: Continue heparin 5000 units subcutaneous 3 times a day. CODE STATUS: Full code. Dr. Martínez thank very much for the consult if I can be any further help to please let me know. Past Medical History Past Medical History: Diabetes Mellitus, Hyperlipidemia, Hypertension, Prostate Disorder, Sleep Apnea/CPAP/BIPAP Additional Past Medical History / Comment(s): aortic valve stenosis,enlarged prostate,no cpap,renal stones History of Any Multi-Drug Resistant Organisms: None Reported Past Surgical History: Heart Catheterization Additional Past Surgical History / Comment(s): renal stone removal, pilonidal cyst removal,ERLINDA Past Anesthesia/Blood Transfusion Reactions: No Reported Reaction Additional Past Anesthesia/Blood Transfusion Reaction / Comm: no hx blood transfusion Smoking Status: Never smoker - Past Family History Mother Family Medical History: No Reported History Father Additional Family Medical History / Comment(s): "heart issues" Medications and Allergies Home Medications Medication Instructions Recorded Confirmed Type Aspirin 81 mg PO HS 08/10/14 04/15/24 History Simvastatin [Zocor] 40 mg PO HS 09/09/15 04/15/24 History Pioglitazone [Actos] 45 mg PO DAILY 03/20/24 04/15/24 History Repaglinide [Prandin] 2 mg PO DAILY 03/20/24 04/15/24 History glyBURIDE [Diabeta] 2.5 mg PO AC-BRKFST 03/20/24 04/15/24 History lisinopriL [Zestril] 5 mg PO BID 03/20/24 04/15/24 History metFORMIN HCL [Glucophage] 500 mg PO BID 03/20/24 04/15/24 History Allergies Allergy/AdvReac Type Severity Reaction Status Date / Time No Known Allergies Allergy Verified 04/15/24 06:09 Physical Exam Vitals: Vital Signs Temp Pulse Pulse Pulse Resp BP BP 04/15/24 20:40 99.1 F 71 16 04/15/24 18:40 98 F 73 16 04/15/24 16:11 78 04/15/24 16:03 74 04/15/24 15:10 97.6 F 72 16 04/15/24 14:10 98 F 78 16 04/15/24 14:00 87 18 04/15/24 13:00 65 20 04/15/24 12:30 68 18 04/15/24 12:15 57 L 18 04/15/24 12:00 57 L 18 04/15/24 11:45 53 L 15 04/15/24 11:30 57 L 16 04/15/24 11:15 56 L 16 04/15/24 11:00 58 L 18 04/15/24 10:45 58 L 18 04/15/24 10:30 54 L 18 04/15/24 10:15 57 L 18 04/15/24 10:00 52 L 18 04/15/24 09:50 52 L 18 04/15/24 09:45 52 L 16 04/15/24 09:35 54 L 18 04/15/24 09:24 97.0 F L 61 20 04/15/24 06:16 97.7 F 62 18 171/72 183/73 BP BP Pulse Ox 04/15/24 20:40 128/57 97 04/15/24 18:40 118/66 96 04/15/24 16:11 04/15/24 16:03 04/15/24 15:10 125/77 98 04/15/24 14:10 121/63 98 04/15/24 14:00 133/58 98 04/15/24 13:00 122/59 98 04/15/24 12:30 112/57 99 04/15/24 12:15 105/54 133/42 97 04/15/24 12:00 107/53 127/41 97 04/15/24 11:45 104/53 127/40 97 04/15/24 11:30 101/53 116/40 98 04/15/24 11:15 103/51 128/42 98 04/15/24 11:00 126/57 105/52 97 04/15/24 10:45 98/51 114/37 97 04/15/24 10:30 101/49 108/35 97 04/15/24 10:15 93/46 104/35 96 04/15/24 10:00 95/45 104/38 96 04/15/24 09:50 150/72 95 04/15/24 09:45 150/68 96 04/15/24 09:35 166/78 96 04/15/24 09:24 143/44 96 04/15/24 06:16 98 Intake and Output 04/15/24 04/15/24 04/16/24 14:59 22:59 06:59 Intake Total 200 Output Total 300 Balance 200 -300 Intake: IV 200 Output: Urine 300 Other: Voiding Method Toilet Urinal # Voids 2 Results CBC & Chem 7: 04/15/24 10:00 04/15/24 10:00 Labs: Abnormal Lab Results - Last 24 Hours (Table) 04/15/24 04/15/24 04/15/24 Range/Units 06:05 06:21 10:00 RBC 3.69 L (4.30-5.90) m/uL Hgb 11.4 L (13.0-17.5) gm/dL Hct 35.0 L (39.0-53.0) % Plt Count 145 L (150-450) k/uL Sodium (137-145) mmol/L Chloride (98-107) mmol/L Glucose 146 H (74-99) mg/dL POC Glucose (mg/dL) 135 H (70-110) mg/dL Calcium (8.4-10.2) mg/dL 04/15/24 04/15/24 04/15/24 Range/Units 10:00 11:05 16:49 RBC (4.30-5.90) m/uL Hgb (13.0-17.5) gm/dL Hct (39.0-53.0) % Plt Count (150-450) k/uL Sodium 136 L (137-145) mmol/L Chloride 108 H (98-107) mmol/L Glucose 196 H (74-99) mg/dL POC Glucose (mg/dL) 189 H 253 H (70-110) mg/dL Calcium 8.3 L (8.4-10.2) mg/dL
[2024-04-16] MEDS: METOPROLOL TARTRATE 12.5 MG TAB PO SCH (08:33)
[2024-04-16] MEDS: MAGNESIUM SULFATE-D5W PMX 1 GM in DEXTROSE/WATER 1 100ML.BAG IVPB SCH (08:35)
[2024-04-16] MEDS ORDERED: CLOPIDOGREL 75 MG TAB PO SCH (09:00)
[2024-04-16] MEDS ORDERED: MAGNESIUM HYDROXIDE 2,400 MG/30 ML CUP PO PRN (09:00)
[2024-04-16] MEDS ORDERED: METOPROLOL TARTRATE 12.5 MG TAB PO SCH (09:00)
[2024-04-16] MEDS ORDERED: bisacodyL 10 MG SUPP RECTAL PRN (09:00)
--- NOTE | 2024-04-16 09:14 | XR ---
EXAMINATION TYPE: XR chest 1V portable DATE OF EXAM: 04/16/2024 Comparison: 04/15/2024 Clinical History: 79-year-old male Post Operative Cardiac Surgery Findings: Heart mildly enlarged. Endovascular aortic valve replacement. Mild atherosclerotic arch calcification s. Mild interstitial prominence is unchanged. No consolidation or pleural effusion. Impression: Similar mild cardiomegaly and mild interstitial prominence. [facility], , 04/16/2024 9:12 AM
[2024-04-16 11:25] VITALS: BP 135/56; PULSE 64; RESP 16
--- NOTE | 2024-04-16 11:31 | CA ---
Transthoracic Echo Report Name: Jourdan Mccarthy Age: 79 Gender: M : 1945 Exam Date: 04/16/2024 08:55 Exam Location: [facility] Ht (in): 68 Wt (lb): 174 Ordering Physician: Delilah Izaguirre Attending/Referring Phys: [id number], Zina Steamfitter Apprentice Rosetta Das, SAMPSON Procedure CPT: Indications: post TAVR Cardiac Hx: 1 day post TAVR Technical Quality: Fair Contrast 1: Total Dose (mL): Contrast 2: Total Dose (mL): MEASUREMENTS (Male / Female) Normal Values 2D ECHO LV Diastolic Diameter PLAX 4.7 cm 4.2 - 5.9 / 3.9 - 5.3 cm LV Systolic Diameter PLAX 2.9 cm IVS Diastolic Thickness 1.3 cm 0.6 - 1.0 / 0.6 - 0.9 cm LVPW Diastolic Thickness 1.4 cm 0.6 - 1.0 / 0.6 - 0.9 cm LV Relative Wall Thickness 0.6 RV Internal Dim ED PLAX 2.5 cm LA Systolic Diameter LX 4.5 cm 3.0 - 4.0 / 2.7 - 3.8 cm LV Diastolic Volume MOD BP 53.8 cm??? 67 - 155 / 56 - 104 cm??? LV Systolic Volume MOD BP 23.3 cm??? - 58 / 19 - 49 cm??? LV Ejection Fraction MOD BP 56.7 % >= 55 % LV Cardiac Index MOD BP 1058.6 cm???/min???m??? LV Diastolic Volume MOD 4C 56.1 cm??? LV Systolic Volume MOD 4C 24.3 cm??? LV Ejection Fraction MOD 4C 56.7 % LV Cardiac Index MOD 4C 1104.5 cm???/min???m??? LV Diastolic Length 4C 7.3 cm LV Systolic Length 4C 6.7 cm LV Diastolic Volume MOD 2C 51.4 cm??? LV Systolic Volume MOD 2C 21.4 cm??? LV Ejection Fraction MOD 2C 58.3 % LV Cardiac Index MOD 2C 1039.7 cm???/min???m??? LV Diastolic Length 2C 7.1 cm LV Systolic Length 2C 6.3 cm LA Volume 100.8 cm??? 18 - 58 / 22 - 52 cm??? LA Volume Index 51.4 cm???/m??? 16 - 28 cm???/m??? M-MODE Aortic Root Diameter MM 2.7 cm LA Systolic Diameter MM 4.1 cm LA Ao Ratio MM 1.5 AV Cusp Separation MM 3.9 cm DOPPLER AV Peak Velocity 136.2 cm/s AV Peak Gradient 7.4 mmHg AV Mean Velocity 99.7 cm/s AV Mean Gradient 4.4 mmHg AV Velocity Time Integral 28.5 cm AI Peak Velocity 315.8 cm/s AI Peak Gradient 39.9 mmHg AI Pressure Half Time 672.7 ms LVOT Peak Velocity 106.6 cm/s LVOT Peak Gradient 4.5 mmHg LVOT Velocity Time Integral 26.2 cm MV Area PHT 2.9 cm??? Mitral E Point Velocity 93.7 cm/s Mitral A Point Velocity 77.5 cm/s Mitral E to A Ratio 1.2 MV Deceleration Time 266.1 ms TR Peak Velocity 308.2 cm/s TR Peak Gradient 38.0 mmHg Right Ventricular Systolic Press 42.2 mmHg FINDINGS Left Ventricle Left ventricular ejection fraction is estimated at 55-60 %. Normal left ventricular systolic function with no obvious regional wall motion abnormalities.Moderately increased left ventricular wall thickness. Right Ventricle Normal right ventricular size and function. Mild pulmonary hypertension. Right Atrium Mild right atrial dilatation. Left Atrium Mildly increased left atrial diameter. Severely increased left atrial volume. Mitral Valve Structurally normal mitral valve. Moderate mitral regurgitation. No mitral stenosis.mitral annular calcification. Aortic Valve Normally functioning bioprosthetic aortic valve, TAVR without stenosis with a peak velocity of 1.36 m/s, peak gradient 7.4mmHg, mean gradient 4.4 mmHg. Mild paravalvular aortic regurgitation. Tricuspid Valve Structurally normal tricuspid valve. [id number] tricuspid regurgitation. No tricuspid stenosis. Pulmonic Valve Structurally normal pulmonic valve. No pulmonic stenosis. Pericardium No pericardial or pleural effusion. Aorta Normal size aortic root and proximal ascending aorta. CONCLUSIONS 1. Normal left ventricular size and systolic function 2. TAVR with a mean gradient of 4 mmHg and mild paravalvular regurgitation 3. Moderate mitral regurgitation 4. Mild to moderate tricuspid regurgitation and mild pulmonary hypertension Previewed by: Dr. Shayna Almaraz MD (Electronically Signed) Final Date: 16 April 2024 11:31
[2024-04-16 11:42] LABS: Glucose,Whole Blood 228 mg/dL (70-110)
--- NOTE | 2024-04-16 13:05 | P.DS ---
Providers Date of admission: 04/15/24 05:32 Expected date of discharge: 04/16/24 Attending physician: Uriel Martínez DO Consults: 04/15/24 08:47 Consult Physician Routine Consulting Provider: Aakash Paulson Consult Reason/Comments: post TAVR Do you want consulting provider notified?: Already Contacted 04/15/24 09:00 Consult Physician Routine Consulting Provider: Eugene Sevilla Reason/Comments: med mgmt Do you want consulting provider notified?: Already Contacted Primary care physician: Eugene Sevilla Hospital Course: MEDICAL HISTORY: Calcified aortic valve with severe symptomatic aortic valve stenosis, NYHA III History of mild coronary artery disease Hypertension Hyperlipidemia Right internal carotid artery stenosis 50-69% Diabetes mellitus Obstructive sleep apnea without home CPAP use Previous pipe use with cessation long time ago PROCEDURE: Percutaneous aortic valve implantation using a 34 mm Evolute FX+ under ERLINDA and fluoroscopy guidance Transesophageal echocardiography performed by anesthesia Ultrasound-guided access and repair of right femoral artery access site by Perclose closure device Placement of temporary pacemaker wire Aortic root angiography Post TAVR balloon aortic valvuloplasty with a 26 mm true balloon HISTORY OF PRESENT ILLNESS: This is a 79-year-old gentleman who follows on an outpatient basis with Dr. Sevilla for primary care and Dr. Martínez for cardiology. He has a known history of severe aortic stenosis and has been symptomatic with increased exertional dyspnea as well as syncopal episode. He had been referred to structural heart clinic for evaluation for transcatheter aortic valve replacement after heart catheterization and transesophageal echocardiogram were completed. Echocardiography demonstrated normal systolic function with EF 55-60%, aortic valve area 0.6 cm with a peak/mean gradient 80- 56 mmHg. Heart catheterization showed mild coronary artery disease 50-60% in the RCA. After workup was completed STS risk score was calculated along with incremental risk and the patient was felt to be low risk for surgical aortic valve replacement however the patient did not wish to have open heart surgery, therefore transcatheter aortic valve replacement was recommended. The usual course of TAVR was discussed in detail the patient, risks and benefits were reviewed, shared decision making between cardiology, surgery, and the patient/family took place, and the patient consented to proceed with the procedure. HOSPITAL COURSE: The patient was brought to the hospital on 04/15/24, was taken to the extended stay area, prepared in the usual fashion, and subsequently taken to the cardiac catheterization laboratory where Dr. Martínez and Dr. Paulson completed TAVR procedure under general anesthesia with fluoroscopy and ERLINDA. The valve was deployed under rapid ventricular pacing and proceeded without event. At the end of the procedure there was no significant gradient, hemodynamics were felt to be acceptable, and there was no significant perivalvular leak after valvuloplasty was performed. Upon completion of the procedure the patient was extubated and was transferred to the cardiac stepdown unit where he was recovered and monitored hemodynamically. His oxygen was titrated down, he was tolerating oral diet, his pain was controlled, follow-up TTE demonstrated normal left ventricular systolic function, pk/mean gradient 7.4/4.4 mmHg, mild paravalvular leak and he was ready to be discharged to home on postoperative day #1. He received written and verbal instruction regarding his medications, a ctivity restrictions, signs and symptoms requiring physician notification, and follow-up appointments. Patient Condition at Discharge: Stable Plan - Discharge Summary Discharge Rx Participant: No New Discharge Prescriptions: New Metoprolol Tartrate [Lopressor] 12.5 mg PO BID #60 tab Sennosides-Docusate Sodium [Senokot-S] 2 each PO HS PRN tab PRN Reason: Constipation Magnesium Hydroxide [Milk of Magnesia] 2,400 mg PO BID PRN ml PRN Reason: Constipation Acetaminophen Tab [Tylenol] 650 mg PO Q4HR PRN tab PRN Reason: Fever And/ Or Mild Pain (1-3) Continue Aspirin 81 mg PO HS Simvastatin [Zocor] 40 mg PO HS Pioglitazone [Actos] 45 mg PO DAILY lisinopriL [Zestril] 5 mg PO BID glyBURIDE [Diabeta] 2.5 mg PO AC-BRKFST Repaglinide [Prandin] 2 mg PO DAILY metFORMIN HCL [Glucophage] 500 mg PO BID #0 Discharge Medication List Aspirin 81 mg PO HS 08/10/14 [History] Simvastatin [Zocor] 40 mg PO HS 09/09/15 [History] Pioglitazone [Actos] 45 mg PO DAILY 03/20/24 [History] Repaglinide [Prandin] 2 mg PO DAILY 03/20/24 [History] glyBURIDE [Diabeta] 2.5 mg PO AC-BRKFST 03/20/24 [History] lisinopriL [Zestril] 5 mg PO BID 03/20/24 [History] Acetaminophen Tab [Tylenol] 650 mg PO Q4HR PRN tab 04/16/24 [Rx] Magnesium Hydroxide [Milk of Magnesia] 2,400 mg PO BID PRN ml 04/16/24 [Rx] Metoprolol Tartrate [Lopressor] 12.5 mg PO BID #60 tab 04/16/24 [Rx] Sennosides-Docusate Sodium [Senokot-S] 2 each PO HS PRN tab 04/16/24 [Rx] metFORMIN HCL [Glucophage] 500 mg PO BID #0 04/16/24 [Rx] Follow up Appointment(s)/Referral(s): Uriel Martínez DO [STAFF PHYSICIAN] - 04/22/24 9:30 am (Your appointment on April 22 is for groin check with nurse practitioner Libia. You also have a 30-day post TAVR echocardiogram and office appointment with Dr. Martínez on 06/16/24 @ 8:30 am, and a 1 year post TAVR echocardiogram and office appoint with Dr. Martínez on 03/19/24 @ 8:30 am) Eugene Sevilla MD [Primary Care Provider] - [facility] [NON-STAFF] - 06/16/24 9:00 am (Please come to the TAVR clinic for your 30-day TAVR follow-up appointment on 06/16 after your appointment with Dr. Martínez, and your 1 year TAVR follow-up appointment on 03/19/25 @ 9 am after your appointment with Dr. Martínez) Ambulatory/Diagnostic Orders: Basic Metabolic Panel [LAB.AMB] Location: None Selected Basic Metabolic Panel [LAB.AMB] Location: None Selected Complete Blood Count w/diff [LAB.AMB] Location: None Selected Complete Blood Count w/diff [LAB.AMB] Location: None Selected Activity/Diet/Wound Care/Special Instructions: DISCHARGE INSTRUCTIONS: 1. No driving for 1 week, or until physician gives their ok. 2. No lifting, pushing, or pulling more than 5-10 pounds for 1 week. 3. Hold both groins when you cough or sneeze for the next 2 weeks. Bruising is common, but report increased swelling, pain or fever >101F 4. Shower daily. No pool, hot tub, or bathtub for 1 week 5. No powders, lotions, ointments on incisions. 6. No straining, including for bowel movements. Use stool softner if necessary 7. Stairs are not an issue. Go slowly, using handrail and take 1 step at a time. Ambulate several times daily 8. Continue pain control per as needed orders. 9. Take only the medications listed on your discharge form 10. Eat low salt (limited to 2 grams or 2000 milligrams) daily, avoid adding salt, avoid canned/processed foods 11. Take your weight daily in the morning and record, bring with you to your follow up appointments 12. Keep all follow up appointments. You will need a valve clinic appointment at 30 days and 1 year post procedure for follow up 13. You have been referred to and are expected to begin Cardiac Rehab in approximately 4 weeks. 14. You will need antibiotics prior to any dental work, including cleanings, and any surgeries to prevent Endocarditis (bacterial infection in your heart) For any questions or concerns please call your valve coordinators: Delilah or Arnold @ Discharge Disposition: HOME SELF-CARE
[2024-04-16] MEDS ORDERED: ASPIRIN 81 MG PO SCH (21:00)
[2024-04-16] MEDS ORDERED: ATORVASTATIN 20 MG TAB PO SCH (21:00)
--- NOTE | 2024-04-17 22:20 | P.PN ---
Subjective Progress Note Date: 04/16/24 HISTORY OF PRESENT ILLNESS: 79-year-old office patient with active medical history of type 2 diabetes, hypertension, hyperlipidemia, BPH, chronic neuropathy, mild peripheral vascular disease, who was diagnosed with severe aortic stenosis has become slightly symptomatic lately echocardiogram was performed based on louder murmur in the last few months and ended up finding severe aortic stenosis. Patient was referred to see cardiology and ended up going for transesophageal echocardiogram and heart catheter with March 25, 2024 result including 20-30 percentile LAD stenosis with 50-60 percentile proximal RCA stenosis. Echocardiogram initially and then transesophageal echocardiogram confirmed severe aortic stenosis. Patient was scheduled for elective surgery after his testing ended up going on a trip to [place] including excursion and bruised which patient enjoyed able to ambulate walk and keep up physically without any persistent pain of chest pain angina but slightly better tiredness and fatigue. The patient was scheduled for elective surgery for transcutaneous aortic valve repair via catheter which was done today in conjunction between cardiology and cardiothoracic Dr. Martínez and Dr. Paulson. Post procedure patient is resting comfortably was transferred to cardiac floor on monitor and has been hemodynamically stable with no major complaint. 04/16/2024: Patient has done very well was admitted after TAVR procedure by Dr. Paulson and Dr. Martínez for TAVR balloon aortic valvuloplasty with 26 mm true balloon. Was admitted stable hemodynamically with watch overnight did not have any complication ambulate and able to function well. The patient did not require any Galaviz catheter his heart monitor through the night failed to show any major abnormality more than PVCs only pulse rate slightly very slow but still running in the 50s and 60s. Medication were reviewed. Patient was able to function without any help and has done very well will be able to be discharged home today on 04/16/2024. REVIEW OF SYSTEMS: CONSTITUTIONAL: Well-developed no acute respiratory distress. EYES: No icterus sclerae, no conjunctivitis. EARS, NOSE, MOUTH, THROAT, and FACE: No sore throat, lymphadenopathy, carotid bruits or deformity. RESPIRATORY: Mild shortness of breath no cough or wheezes. CARDIOVASCULAR: Positive PND orthopnea palpitation sometimes. GASTROINTESTINAL: No Abd pain, Nausea or vomiting, no Diarrhea or constipation, No GI Bleed, no distention or masses. GENITOURINARY: Mild BPH with mild polyuria and nocturia. INTEGUMENT/BREAST: Negative for any muscular injury with mild osteoarthritis.. HEMATOLOGIC/LYMPHATIC: Negative for bleed or purpura. MUSCULOSKELTAL: Negative for Myalgia or arthralgia. NEURLOGICAL: No LOC, Sz or syncope, blurred vision dizziness or abnormality. Slight memory loss.. BEHAVIORAL/PSYCH: Negative. ENDOCRINE: Negative. PHYSICAL EXAMINATION: General Appearance: Alert, cooperative, no distress, appears stated age. Neck HEENT: Supple, no lymphadenopathy, no thyroid enlargement, no carotid bruits. Lungs: Clear to auscultation without crackles or wheezes no rhonchi, no deformity. Chest Wall: Chest wall normal expansion with deep inspiration no tenderness and no deformity was found on exam, no costochondral pain or discomfort. Heart: Regular rate and rhythm, S1, S2 normal, no murmur, rub or gallop. Back: Symmetric, no curvature, ROM normal, no CVA tenderness. Abdomen: Soft, non-tender, bowel sounds active all four quadrants, no masses, no organomegaly. Extremities: Extremities normal, atraumatic, no cyanosis or edema. Pulses: 2+ and symmetric. Skin: Skin color, texture, tugor normal, no rashes or lesions. Neurologic: Alert oriented x3 cranial nerves II through XII intact, no motor deficit, no abnormal balance or gait. ASSESSMENT AND PLAN: _Severe aortic stenosis post TAVR balloon aortic valvuloplasty with a 26 mm true balloon remained hemodynamically stable done very well so far with no complication. _Mild atherosclerotic heart disease and coronary artery disease, with 20-30 percentile stenosis of the LAD and 50-60 of the proximal RCA which patient did not require any intervention has been on medical management at this point. _Type 2 diabetes: Has been on metformin, glimepiride, pioglitazone and Prandin. Accu-Chek sliding scales coverage to be done resume home meds watch for any hypoglycemia. _Hypertension: Continue lisinopril 5 mg a day might benefit eventually from a smaller dose of beta-lilliana. _Hyperlipidemia: Remain on simvastatin 40 mg daily with no complication or side effect. _Mild neuropathy: Up till now patient is not any medication this medical management. _BPH: Watch for any urinary retention. Discussion: Following his procedure resume all his home meds patient was h emodynamically stable did not have any complication medication were adjusted slightly by starting metoprolol titrate 12.5 mg twice a day, continue aspirin, simvastatin, pioglitazone, lisinopril, glimepiride, Prandin and metformin. Patient will be follow-up in the office in the next few days and follow-up with cardio vascular and cardiothoracic in the next few days as well. Objective - Vital Signs Vital signs: Vital Signs Temp 98.1 F 04/16/24 07:43 Pulse 63 04/16/24 07:43 Resp 18 04/16/24 07:43 BP 150/68 04/16/24 07:43 Pulse Ox 96 04/16/24 07:43 FiO2 Intake & Output 04/15/24 04/16/24 04/16/24 18:59 06:59 18:59 Intake Total 200 Output Total 1300 Balance 200 -1300 Weight 78.8 kg Intake: IV 200 Output: Urine 1300 Straight 500 Other: Voiding Method Toilet Urinal # Voids 2 - Labs CBC & Chem 7: 04/16/24 05:41 04/16/24 05:41 Labs: Abnormal Lab Results - Last 24 Hours (Table) 04/15/24 04/15/24 04/15/24 Range/Units 06:05 10:00 10:00 RBC 3.69 L (4.30-5.90) m/uL Hgb 11.4 L (13.0-17.5) gm/dL Hct 35.0 L (39.0-53.0) % Plt Count 145 L (150-450) k/uL Sodium 136 L (137-145) mmol/L Chloride 108 H (98-107) mmol/L Glucose 146 H 196 H (74-99) mg/dL POC Glucose (mg/dL) (70-110) mg/dL Calcium 8.3 L (8.4-10.2) mg/dL Total Protein (6.3-8.2) g/dL 04/15/24 04/15/24 04/16/24 Range/Units 11:05 16:49 05:41 RBC 3.95 L (4.30-5.90) m/uL Hgb 12.1 L (13.0-17.5) gm/dL Hct 37.5 L (39.0-53.0) % Plt Count 145 L (150-450) k/uL Sodium (137-145) mmol/L Chloride (98-107) mmol/L Glucose (74-99) mg/dL POC Glucose (mg/dL) 189 H 253 H (70-110) mg/dL Calcium (8.4-10.2) mg/dL Total Protein (6.3-8.2) g/dL 04/16/24 04/16/24 Range/Units 05:41 06:23 RBC (4.30-5.90) m/uL Hgb (13.0-17.5) gm/dL Hct (39.0-53.0) % Plt Count (150-450) k/uL Sodium (137-145) mmol/L Chloride (98-107) mmol/L Glucose 169 H (74-99) mg/dL POC Glucose (mg/dL) 160 H (70-110) mg/dL Calcium (8.4-10.2) mg/dL Total Protein 5.8 L (6.3-8.2) g/dL
== END 2024-04-16 13:23 | disposition home or self-care (01) | DRG 267 ==
LOC: 2ORMAIN 05:32 → 3SCARD 13:50
PROVIDERS: ADMIT Internal Medicine; ATTEND Internal Medicine
PROC: B3101ZZ Fluoroscopy of Thoracic Aorta using Low Osmolar Contrast (ICD-10-PCS; 2024-04-15)
PROC: B24BZZ4 Ultrasonography of Heart with Aorta, Transesophageal (ICD-10-PCS; 2024-04-15)
PROC: 02RF38Z Replacement of Aortic Valve with Zooplastic Tissue, Percutaneous Approach (ICD-10-PCS; principal; 2024-04-15 08:00)
DX: I35.0 Nonrheumatic aortic (valve) stenosis (principal); Z00.6 Encounter for examination for normal comparison and control in clinical research program; E78.5 Hyperlipidemia, unspecified; I10 Essential (primary) hypertension; I25.10 Atherosclerotic heart disease of native coronary artery without angina pectoris; E11.40 Type 2 diabetes mellitus with diabetic neuropathy, unspecified; G47.33 Obstructive sleep apnea (adult) (pediatric); I35.8 Other nonrheumatic aortic valve disorders; I65.21 Occlusion and stenosis of right carotid artery; N40.0 Benign prostatic hyperplasia without lower urinary tract symptoms; E11.51 Type 2 diabetes mellitus with diabetic peripheral angiopathy without gangrene; Z79.82 Long term (current) use of aspirin; Z79.84 Long term (current) use of oral hypoglycemic drugs; Z79.899 Other long term (current) drug therapy; Z87.891 Personal history of nicotine dependence
CPT/HCPCS: 33361; 71045; 80048; 80053; 82330; 83735; 85025; 93306; 93312; 93320; 93325; 94640

== ENCOUNTER → 2024-06-26 | Outpatient (CLI) | payer MEDICARE ==
[2024-06-26 16:08] LABS: Basophils # (A) 0.04 X 10*3/uL (0.00-0.10); Basophils % (A) 0.6 %; Eosinophils # (A) 0.12 X 10*3/uL (0.04-0.35); Eosinophils % (A) 1.8 %; HCT 40.7 % (39.6-50.0); HGB 12.9 g/dL (13.0-17.0); Lymphocytes # (A) 1.32 X 10*3/uL (0.90-5.00); Lymphocytes % (A) 19.6 %; MCH 28.9 pg (27.0-32.0); MCHC 31.7 g/dL (32.0-37.0); MCV 91.3 FL (80.0-97.0); Mean Platelet Volume 12.6 FL (9.5-12.2); Monocytes % (A) 11.9 %; NRBC Per 100 WBC 0 X 10*3/uL (0.00-0.01); Neutrophils # (A) 4.46 X 10*3/uL (1.80-7.70); Platelet Count 155 X 10*3/uL (140-440); RBC 4.46 X 10*6/uL (4.40-5.60); RDW 13.8 % (11.5-14.5); WBC 6.75 X 10*3/uL (4.50-10.00)
[2024-06-26 16:21] LABS: BUN/Creat Ratio 32.71 Ratio (12.00-20.00); Blood Urea Nitrogen 22.9 mg/dL (9.0-27.0); Calcium 9.7 mg/dL (8.7-10.3); Carbon Dioxide 27.7 mmol/L (21.6-31.8); Chloride 104 mmol/L (96-109); Glucose 102 mg/dL (70-110); Potassium 4.6 mmol/L (3.5-5.5); Sodium 142 mmol/L (135-145)
== END | disposition home or self-care (01) ==
LOC: LABWHC1 09:16
PROVIDERS: ATTEND Thoracic Surgery (Cardiothoracic Vascular Surgery)
DX: I35.0 Nonrheumatic aortic (valve) stenosis (principal)
CPT/HCPCS: 36415; 80048; 85025